=== PATIENT | female | born 1980 | race Caucasian/White ===

== ENCOUNTER 2020-09-12 14:57 | Outpatient (CLI) | payer OTHER, SELFPAY ==
--- NOTE | 2020-09-12 15:01 | MM_ITS ---
WS: [id number] BILATERAL DIGITAL SCREENING MAMMOGRAPHY WITH CAD CLINICAL INFORMATION: SCREENING HISTORY: Screening mammogram. No current complaints. COMPARISON: None. TECHNIQUE: Bilateral CC and MLO views. FINDINGS: The breasts are composed of heterogeneous fibroglandular density tissue, which can limit the detectio n of small underlying mass lesions. No suspicious mass, asymmetry, calcifications, or architectural d istortion. No evidence of malignancy. MM/[id number] IMPRESSION: BI-RADS: 1-Negative FOLLOW UP: 1 Year Follow-up Recommend return to annual screening mammography.
== END 2020-09-12 14:58 | disposition home or self-care (01) ==
LOC: RADSHAW 15:00
PROVIDERS: PCP Family Medicine; Visit Provider Family Medicine
DX: Z12.31 Encounter for screening mammogram for malignant neoplasm of breast (principal)
CPT/HCPCS: 77067

== ENCOUNTER 2021-02-13 19:04 | Emergency (ER) | payer OTHER, SELFPAY ==
[2021-02-13 19:08] VITALS: BP 143/92; PULSE 69; RESP 16; TEMP 36.4; O2SAT 99; BMI 30.2
--- NOTE | 2021-02-13 19:23 | W.ED.FEMALGU ---
HPI - Female Genitourinary General: Chief complaint: Vaginal Bleeding Stated complaint: possible miscarriage Time Seen by Provider: 02/13/21 19:13 Source: patient Mode of arrival: ambulatory Limitations: no limitations History of Present Illness: HPI Narrative: 40-year-old female who states she is concerned she may be having a miscarriage. She states her last period was in December and she has had vaginal bleeding over the last 10 days. She states that it got much worse today and was passing some clots. She denies any lightheadedness. States she had lower abdominal cramping she rates a 3 out of 10 currently. She has not taken a test at home. Denies any worsening improving factors. Associated symptoms: Deny abdominal pain, headache(s) or nausea Date of Last Menstrual Period: 12/24/20 Review of Systems Const: Denies: fever(s), chills, body aches or change in appetite Eyes: Denies: blurry vision or eye discomfort ENMT: Denies: throat pain or dental pain Card: Denies: chest pain Resp: Denies: dyspnea GI: Denies: abdominal pain, nausea, vomiting or diarrhea : Reports: vaginal bleeding; Denies: dysuria Musc: Denies: neck pain or back pain Skin/Breast: Denies: rash Neuro: Denies: headache(s) Psych: Denies: depression Moses/Lymph: Denies: easy bruising All/Imm: Denies: urticaria [facility] Female Reproductive History: Date of last menstrual period: 12/24/20 Physical Exam Const: COMMON NORMALS: no acute distress, patient oriented x3 and healthy appearing HENMT: COMMON NORMALS: normocephalic and atraumatic HEAD & SCALP: normocephalic and atraumatic Eye: COMMON NORMALS: Equal, round and reactive pupils present and EOMs intact bilaterally PUPIL: Yes Equal, round and reactive pupils present Neck/C-Spine: COMMON NORMALS: full ROM and supple Chest: COMMONS NORMALS: normal inspection of the chest and normal palpation of entire chest wall Resp: COMMON NORMALS: normal respiratory effort, No retractions, No use of accessory muscles and clear to auscultation bilaterally AUSCULTATION: clear to auscultation bilaterally Cardio: COMMON NORMALS: regular rate, regular rhythm and No murmurs present (Cardio) RATE: regular rate RHYTHM: regular rhythm GI: COMMON NORMALS: Normal to inspection, nondistended, normoactive bowel sounds present, Soft to palpation, non-tender and no masses PALPATION: Yes Soft to palpation Extremity: COMMON NORMALS: normal to inspection and full ROM Neuro: COMMON NORMALS: patient oriented x3, moves all extremities and no focal motor deficits Psych: COMMON NORMALS: mental status grossly normal, Normal thought process present and cooperative THOUGHT PROCESS: Normal thought process present Skin: COMMON NORMALS: no rashes or lesions noted and no wounds GENERAL SKIN EXAM: no rashes or lesions noted Course Vital Signs: Vital signs: Vital Signs Temperature 97.5 F L 02/13/21 19:08 Pulse Rate 67 02/13/21 21:42 Respiratory Rate 18 02/13/21 21:42 Blood Pressure 118/75 02/13/21 21:30 Pulse Oximetry 98 02/13/21 21:42 MDM - Female MDM Narrative: Medical decision making narrative: Patient presents here with an incomplete miscarriage. Patient's bleeding has improved here and her hemoglobin is negative. She is stable for discharge and is to follow-up with OB and return if worsening. She understands agrees to plan. Lab Data: Labs: Lab Results 02/13/21 02/13/21 02/13/21 Range/Units 19:28 19:28 19:57 WBC 12.7 H (4.0-10.0) 10^3/ uL RBC 4.42 (4.1-5.3) 10^6/u L Hgb 13.9 (11.5-15.3) g/dL Hct 42.0 (37.0-47.0) % MCV 95.0 (81-99) fL MCH 31.4 (28.0-34.0) pg MCHC 33.1 (30.0-36.0) g/dL RDW 12.8 (12.1-15.1) % Plt Count 332 (130-400) 10^3/c mm MPV 9.5 (7.4-10.4) fL Neut % (Auto) 83.5 % Lymph % (Auto) 11.9 % Alfalfa % (Auto) 3.2 % Eos % (Auto) 0.6 % Baso % (Auto) 0.5 % Neut # (Auto) 10.62 H (1.8-7.7) 10^3/u L Lymph # (Auto) 1.5 (0.8-4.8) 10^3/u L Alfalfa # (Auto) 0.4 (0.2-0.9) 10^3/u L Eos # (Auto) 0.1 (0.0-0.8) 10^3/u L Baso # (Auto) 0.1 (0.0-0.1) 10^3/u L Nucleated RBC % (a uto) 0 % Nucleated RBCs # 0.0 /100WBC Ser , Jaspreet i-Qnt Cancelled 469.50 Blood Type Rho(D) Type Antibody Screen 02/13/21 Range/Units 19:57 WBC (4.0-10.0) 10^3/ uL RBC (4.1-5.3) 10^6/u L Hgb (11.5-15.3) g/dL Hct (37.0-47.0) % MCV (81-99) fL MCH (28.0-34.0) pg MCHC (30.0-36.0) g/dL RDW (12.1-15.1) % Plt Count (130-400) 10^3/c mm MPV (7.4-10.4) fL Neut % (Auto) % Lymph % (Auto) % Alfalfa % (Auto) % Eos % (Auto) % Baso % (Auto) % Neut # (Auto) (1.8-7.7) 10^3/u L Lymph # (Auto) (0.8-4.8) 10^3/u L Alfalfa # (Auto) (0.2-0.9) 10^3/u L Eos # (Auto) (0.0-0.8) 10^3/u L Baso # (Auto) (0.0-0.1) 10^3/u L Nucleated RBC % (a uto) % Nucleated RBCs # /100WBC Ser , Jaspreet i-Qnt Blood Type AB Positive Rho(D) Type Positive / 4+ Antibody Screen Negative Imaging Data: US OB: Radiologist's impression: [address] [address] Ultrasound Report Signed Patient: Kristine Truong Unit #: [id number] : 1980 Age/Sex: 40 / F ADM Date: 02/13/21 Loc: ER Room/Bed: Attending Dr: Ordering Provider/Ordering MD: Prateek Canela MD Date of Service: 02/13/21 Procedure(s): US OB <= 14 weeks fetus [id number] Accession Number(s): [id number] Report Number: [id number] PROCEDURE INFORMATION: Exam: US , Limited Exam date and time: 02/13/2021 8:42 PM Age: 40 years old Clinical indication: complicated by abdominal or pelvic pain; Lower; First trimester; Gestational age or lmp: PT not sure thinks 2 months; ; Additional info: Miscarriage TECHNIQUE: Imaging protocol: Real-time ultrasound of the maternal uterus with image documentation. Exam focused on the clinical indication. COMPARISON: No relevant prior studies available. FINDINGS: Gestation: No intrauterine gestation identified. MATERNAL: Uterus: Inhomogenous thickening of the endometrium in the lower uterine segment measuring up to 3.1 cm in thickness. Right adnexa: The right ovary was not visualized. Left adnexa: The left ovary was not visualized. Intraperitoneal space: No free peritoneal fluid. US/US OB <= 14 weeks fetus [id number] IMPRESSION: 1. No visible intrauterine gestational sac with inhomogenous thickening of the lower endometrium. This most likely represents a miscarriage in progress with blood clot or retained products of conception. Follow-up with quantitative beta HCG values and/or ultrasound recommended. Discharge Plan Discharge Patient Disposition: Home Clinical Impression: Incomplete Condition: Stable Prescriptions: New hydrocodone-acetaminophen 5-325 mg tablet 1 tab PO Q6H PRN (Reason: pain) Qty: 8 RF: 0 No Action Midol 500-25 mg Tablet 1 - 2 tab PO Q4H PRN (Reason: Menstrual Pain) RF: 0 Aleve 220 mg Tablet 220 - 440 mg PO Q4H PRN (Reason: Pain) RF: 0 Zafemy See Rx Instructions .ROUTE .COMPLEX RF: 0 Discharge Orders: Discharge ED (Routine); Ordered 02/13/21 Ordered By: Prateek Canela Referrals: Will Almonte, DO [Primary Care Provider] - Discharge Diet: Advance as tolerated Discharge Activity: Resume usual activity Patient Instructions: Spontaneous Miscarriage (ED) Coding Level of Care Code ED Merchandising Representative for Chg Fwd Exam Comprehensive
[2021-02-13 19:36] LABS: Basophils # 0.1 10^3/uL (0.0-0.1); Basophils % 0.5 %; Eosinophils # 0.1 10^3/uL (0.0-0.8); Eosinophils % 0.6 %; Hemoglobin 13.9 g/dL (11.5-15.3); Lymphocytes # 1.5 10^3/uL (0.8-4.8); Lymphocytes % 11.9 %; Mean Corpuscular HGB Conc 33.1 g/dL (30.0-36.0); Mean Corpuscular Hemoglobin 31.4 pg (28.0-34.0); Mean Platelet Volume 9.5 fL (7.4-10.4); Monocytes # 0.4 10^3/uL (0.2-0.9); Monocytes % 3.2 %; Neutrophils # 10.62 10^3/uL (1.8-7.7); Neutrophils % 83.5 %; Nucleated Red Blood Cells % 0 %; Platelet Count 332 10^3/cmm (130-400); Red Blood Count 4.42 10^6/uL (4.1-5.3); Red Cell Distribution Width 12.8 % (12.1-15.1); White Blood Count 12.7 10^3/uL (4.0-10.0)
[2021-02-13 20:00] VITALS: BP 122/85; PULSE 55; RESP 18; O2SAT 97
[2021-02-13] MEDS: HYDROcodone-acetaminophen 5-325 mg Tablet 1 TAB PO (20:31)
--- NOTE | 2021-02-13 20:42 | USR_ITS ---
PROCEDURE INFORMATION: Exam: US , Limited Exam date and time: 02/13/2021 8:42 PM Age: 40 years old Clinical indication: complicated by abdominal or pelvic pain; Lower; First trimester; Gestational age or lmp: PT not sure thinks 2 months; ; Additional info: Miscarriage TECHNIQUE: Imaging protocol: Real-time ultrasound of the maternal uterus with image documentation. Exam focused on the clinical indication. COMPARISON: No relevant prior studies available. FINDINGS: Gestation: No intrauterine gestation identified. MATERNAL: Uterus: Inhomogenous thickening of the endometrium in the lower uterine segment measuring up to 3.1 cm in thickness. Right adnexa: The right ovary was not visualized. Left adnexa: The left ovary was not visualized. Intraperitoneal space: No free peritoneal fluid. US/US OB <= 14 weeks fetus [id number] IMPRESSION: 1. No visible intrauterine gestational sac with inhomogenous thickening of the lower endometrium. This most likely represents a miscarriage in progress with blood clot or retained products of conception. Follow-up with quantitative beta HCG values and/or ultrasound recommended.
[2021-02-13 21:30] VITALS: BP 118/75; PULSE 62; RESP 18; O2SAT 96
[2021-02-13 21:42] VITALS: PULSE 67; RESP 18; O2SAT 98
--- NOTE | 2021-02-14 09:35 | DCPLANNER ---
manager pool had message to schedule [facility] manager pool called [facility], spoke with Moraima, gave clinic patients information. manager pool was told that patients information would be printed and reviewed. Clinic will call patient with appointment information.
--- NOTE | 2021-02-25 08:12 | DCPLANNER ---
legal operations manager spoke with Moraima at [facility] to confirm if an appointment had been scheduled for patient. legal operations manager was told that patient was contacted and was going to follow up with primary care, no appointment made at this time.
== END 2021-02-13 21:40 | disposition home or self-care (01) ==
PROVIDERS: Emergency Provider Emergency Medicine; PCP Family Medicine
DX: O03.4 Incomplete spontaneous abortion without complication (principal)
CPT/HCPCS: 76801; 84702; 85025; 86850; 86900; 99283

== ENCOUNTER → 2023-01-06 15:14 | Outpatient (BNVA) | payer OTHER, SELFPAY | PROVIDERS: PCP Family Medicine; Visit Provider Family Medicine | DX: Z30.09 Encounter for other general counseling and advice on contraception (principal); Z86.32 Personal history of gestational diabetes | CPT/HCPCS: 80053; 80061; 83036 ==

== ENCOUNTER 2024-01-20 14:49 | Outpatient (CLI) | payer OTHER, SELFPAY ==
--- NOTE | 2024-01-20 15:00 | MM_ITS ---
WS: [id number] BILATERAL 3D TOMOSYNTHESIS DIGITAL SCREENING MAMMOGRAPHY WITH CAD CLINICAL INFORMATION: SCREENING HISTORY: Screening mammogram. No current complaints. COMPARISON: 2020 TECHNIQUE: Bilateral CC and MLO views. FINDINGS: The breasts are composed of heterogeneous fibroglandular density tissue, which can limit the detectio n of small underlying mass lesions. No suspicious mass, asymmetry, calcifications, or architectural d istortion. No evidence of malignancy. MM/[id number] IMPRESSION: BI-RADS: 1-Negative FOLLOW UP: 1 Year Follow-up Recommend return to annual screening mammography.
== END 2024-01-20 14:50 | disposition home or self-care (01) ==
LOC: MOBLMAM 14:56
PROVIDERS: PCP Family Medicine; Visit Provider Family Medicine
DX: Z12.31 Encounter for screening mammogram for malignant neoplasm of breast (principal)
CPT/HCPCS: 77063; 77067

== ENCOUNTER → 2024-07-21 15:07 | Outpatient (BNVA) | payer OTHER, SELFPAY | PROVIDERS: PCP Family Medicine; Visit Provider Family Medicine | DX: R73.9 Hyperglycemia, unspecified (principal); M79.671 Pain in right foot; M79.672 Pain in left foot; R60.9 Edema, unspecified | CPT/HCPCS: 80053; 80061; 82607; 83036; 84443; 85025; 85651; 86038; 86140 ==

== ENCOUNTER → 2024-11-24 15:05 | Outpatient (BNVA) | payer OTHER, SELFPAY | PROVIDERS: PCP Family Medicine; Visit Provider Family Medicine | DX: Z86.32 Personal history of gestational diabetes (principal); M86.60 Other chronic osteomyelitis, unspecified site; R76.8 Other specified abnormal immunological findings in serum; R60.9 Edema, unspecified; E03.9 Hypothyroidism, unspecified | CPT/HCPCS: 80053; 83036; 85025; 85651; 86140 ==

== ENCOUNTER 2025-01-25 14:27 | Outpatient (CLI) | payer OTHER, SELFPAY ==
--- NOTE | 2025-01-25 14:20 | MM_ITS ---
WS: [id number] BILATERAL 3D TOMOSYNTHESIS DIGITAL SCREENING MAMMOGRAPHY WITH CAD CLINICAL INFORMATION: SCREENING HISTORY: Screening mammogram. No current complaints. COMPARISON: 2023 TECHNIQUE: Bilateral CC and MLO views. FINDINGS: The breasts are composed of heterogeneous fibroglandular density tissue, which can limit the detection of small underlying mass lesions. No suspicious mass, asymmetry, calcifications, or architectural distortion. No evidence of malignancy. MM/MM scr tomosynthesis [id number] IMPRESSION: DENSITY: The breasts are heterogeneously dense, which may obscure small masses. BI-RADS: 1 - Negative FOLLOW UP: 1 Year Follow-up Recommend return to annual screening mammography.
== END 2025-01-25 14:28 | disposition home or self-care (01) ==
LOC: MOBLMAM 14:30
PROVIDERS: PCP Family Medicine; Visit Provider Family Medicine
DX: Z12.31 Encounter for screening mammogram for malignant neoplasm of breast (principal); R92.333 Mammographic heterogeneous density, bilateral breasts
CPT/HCPCS: 77063; 77067

== ENCOUNTER → 2025-07-20 15:13 | Outpatient (BNVA) | payer OTHER, SELFPAY | PROVIDERS: PCP Family Medicine; Visit Provider Family Medicine | DX: R73.9 Hyperglycemia, unspecified (principal); M35.9 Systemic involvement of connective tissue, unspecified; E03.9 Hypothyroidism, unspecified; M19.90 Unspecified osteoarthritis, unspecified site; R76.89 Other specified abnormal immunological findings in serum; M86.60 Other chronic osteomyelitis, unspecified site; Z86.32 Personal history of gestational diabetes | CPT/HCPCS: 80053; 80061; 83036; 85025; 85651; 86140 ==